=== PATIENT | female | born 1985 | race African-American/Black ===

== ENCOUNTER → 2017-10-20 | Outpatient (CLI) | payer BC ==
[~2017-10-20] MED LIST: ACET-1256 PO; CLR10 PO; LEVO1IUD2
--- NOTE | 2017-10-20 08:36 | DIAGNOSTIC IMAGING REPORT ---
ULTRASOUND OF THE PELVIS CLINICAL HISTORY: Endometriosis. COMPARISON STUDY: No priors. TECHNIQUE: Real-time, grayscale, and color flow sonography of the pelvis is performed both transabdominally and endovaginally. Images are reviewed in the transverse and longitudinal planes. FINDINGS: Uterus: The uterus is normal in size and echotexture, measuring 7.2 x 3.6 x 5.7 cm. Endometrium: The endometrium is normal in appearance, and the endometrial stripe is normal in thickness measuring up to 0.6 cm. An intrauterine device is in place. Ovaries: The ovaries are normal in size and morphology. The right ovary measures 3.2 x 2.5 x 4.0 cm and the left ovary measures 3.9 x 1.9 x 3.4 cm. A 2.4 cm complex/involuting follicle is noted in the left ovary. Normal Doppler waveforms are shown within both ovaries. Pelvis: There is a small volume of free fluid in the cul-de-sac. No concerning adnexal lesion is seen. IMPRESSION: 1. No acute sonographic abnormality is identified in the pelvis. 2. An intrauterine device is in place. 3. A small volume of free fluid in the cul-de-sac is likely within physiologic limits. 4. A complex/involuting follicle is noted in the left ovary. Electronically signed by: Noble Lynn M.D. 10/20/2017 8:35 AM Dictated Date/Time: 10/20/2017 8:33 AM
== END | disposition home or self-care (01) ==
LOC: C.ULTR 07:34
PROVIDERS: ATTEND Obstetrics & Gynecology Gynecologic Oncology
DX: Z85.42 Personal history of malignant neoplasm of other parts of uterus (principal); N85.02 Endometrial intraepithelial neoplasia [EIN]

== ENCOUNTER 2018-01-21 18:23 | Emergency (ER) | payer BC ==
[~2018-01-21] VITALS: Ht 170.2 cm; Wt 185.7 kg
[2018-01-21 18:30] VITALS: TEMP 36.8; Ht 170.2 cm; Wt 185.7 kg
[2018-01-21] MEDS ORDERED: KETOROLAC TROMETHAMINE 60 MG/2 ML VIAL IM STA (18:32)
[2018-01-21] MEDS ORDERED: ONDANSETRON 4MG OD TAB PO STA (18:32)
[2018-01-21] MEDS ORDERED: HYDROmorphone INJ 2 MG/ML SYR/VIAL IM STA (18:32)
--- NOTE | 2018-01-21 18:41 | EMERGENCY ROOM VISIT NOTE ---
History Report prepared by Sondra: Abhishek Rudolph Under the Supervision of: Dr. Librado Nagy M.D. First contact with patient: 18:29 Chief Complaint: FALL Stated Complaint: FALL, L ANKLE & SHOULDER PAIN History of Present Illness The patient is a 32 year old female who presents to the Emergency Room with complaints of constant left shoulder pain following a fall occurring today. The patient states that she slipped and fell in the mud today. She notes that she did not hit her head when she fell, but she reports that she injured her left shoulder and left ankle. She rates her pain as an 8/10. She denies any pain in her left elbow, wrist, and knee. The patient states that she did not take anything for her pain. Source of History: patient Onset: today Position: shoulder (left) Symptom Intensity: 8/10 Timing: constant Note: The patient also complains of left ankle pain. She denies any pain in her left elbow, wrist, and knee. Review of Systems See HPI for pertinent positives & negatives. A total of 10 systems reviewed and were otherwise negative. Past Medical & Surgical Medical Problems: (1) Sleep apnea Family History Cancer Diabetes mellitus Heart disease Hypertension Social History Smoking Status: Never Smoker Alcohol Use: none Drug Use: none Marital Status: single Occupation Status: employed Current/Historical Medications Scheduled PRN Acetaminophen (Tylenol), 1,000 MG PO Q8 PRN for Pain Ibuprofen (Advil), 200-600 MG PO Q4H PRN for Pain Loratadine (Claritin), 10 MG PO DAILY PRN for ALLERGIC REACTION Oxycodone/Acetaminophen 5MG/325MG (Percocet 5MG/325MG), 1-2 TAB PO Q4H PRN for Pain Miscellaneous Medications Levonorgestrel (Iud) (Mirena) Allergies Coded Allergies: BEE STING (Verified Allergy, Severe, SWELLING, 01/21/18) Dairy (Verified Allergy, Intermediate, GI UPSET, 01/21/18) Physical Exam Vital Signs Date Time Temp Pulse Resp B/P (MAP) Pulse Ox O2 Delivery O2 Flow Rate FiO2 01/21/18 20:21 67 18 174/95 100 01/21/18 18:30 36.8 55 18 156/97 95 Room Air Physical Exam GENERAL: Awake, alert, well-appearing, in no acute distress, morbidly obese. HENT: Normocephalic, atraumatic. Oropharynx unremarkable. EYES: Normal conjunctiva. Sclera non-icteric. NECK: Supple. No nuchal rigidity. FROM. No JVD. RESPIRATORY: Clear to auscultation. CARDIAC: Regular rate, normal rhythm. Extremities warm and well perfused. Pulses equal. ABDOMEN: Soft, non-distended. No tenderness to palpation. No rebound or guarding. No masses. RECTAL: Deferred. MUSCULOSKELETAL: Chest examination reveals no tenderness. The back is symmetrical on inspection without obvious abnormality. There is no CVA tenderness to palpation. No joint edema. Good ROM to left elbow and left wrist, neurovascularly intact. Good ROM in left hip. LOWER EXTREMITIES: Calves are equal size bilaterally and non-tender. No edema. No discoloration. Good ROM in left knee, neurovascularly intact in the left foot. NEURO: Normal sensorium. No sensory or motor deficits noted. SKIN: No rash or jaundice noted. Medical Decision & Procedures ER Provider Diagnostic Interpretation: Radiology results as stated below per my review and radiologist interpretation: LEFT SHOULDER 3 VIEWS FINDINGS: 3 views of the left shoulder are obtained. No prior studies are available for comparison at the time of dictation. The skeletal structures appear osteopenic. There is no radiographic evidence of left shoulder fracture or dislocation. The glenohumeral and acromioclavicular joints appear maintained. The overlying soft tissues are within normal limits. The imaged left upper lobe lung parenchyma appears clear. IMPRESSION: There is no radiographic evidence of left shoulder fracture or dislocation. Electronically signed by: Noble Lynn M.D. 01/21/2018 7:28 PM LEFT ANKLE 3 VIEWS FINDINGS: 3 views of the left ankle are obtained. No prior studies are available for comparison at the time of dictation. The skeletal structures appear osteopenic. No fracture is identified. The ankle mortise is intact. Degenerative spurring is seen along the dorsal last of the tarsal bones. Pes planus is observed. An os trigonum is incidentally noted. Mild benign-appearing periostitis is seen involving the distal tibia. There is no large ankle joint effusion. Soft tissue edema is present throughout the left lower extremity. Extensive soft tissue calcifications are noted. IMPRESSION: 1. Diffuse soft tissues swelling with no radiographic evidence of left ankle fracture. 2. Osteopenia, pes planus, and degenerative change as above. Electronically signed by: Noble Lynn M.D. 01/21/2018 7:27 PM Medications Administered Medications (Trade) Dose Ordered Sig/Miranda Route Start Time Stop Time Status Last Admin Dose Admin Hydromorphone HCl (Dilaudid Inj) 2 mg NOW STAT IM 01/21/18 18:32 01/21/18 18:34 DC 01/21/18 18:55 2 MG Ondansetron HCl (Zofran Odt) 4 mg NOW STAT PO 01/21/18 18:32 01/21/18 18:34 DC 01/21/18 18:55 4 MG Ketorolac Tromethamine (Toradol Inj) 60 mg NOW STAT IM 01/21/18 18:32 01/21/18 18:34 DC 01/21/18 18:55 60 MG Oxycodone/ Acetaminophen (Percocet 5/ 325MG Home Pack) 1 homepack UD ONCE PO 01/21/18 19:45 01/21/18 19:46 DC 01/21/18 20:14 1 HOMEPACK ED Course 1829: Past medical records reviewed. The patient was evaluated in room B12. A complete history and physical examination was performed. 1831: Toradol Inj 60mg IM, Zofran Odt 4mg PO, Dilaudid Inj 2mg IM 1920: I reevaluated and updated the patient. 1944: Oxycodone/Acetaminophen 1 homepack PO 1947: Upon reexamination the patient is stable. I discussed results and treatment plan with the patient. She verbalizes agreement and understanding. The patient is ready for discharge. Medical Decision Differential diagnosis: Etiologies such as fracture, dislocation, intra-abdominal, pneumothorax, intrathoracic , intracranial, neurologic, as well as other traumatic pathologies were entertained. This is a 32-year-old female who presents emergency department after a fall. The patient has good range of motion of the left shoulder and has no evidence of contusion. The patient was given Dilaudid Toradol and Zofran here in the emergency department. Repeat examination revealed much improvement the patient' s symptoms. X-ray of the patient's left shoulder and left ankle does not show any acute fracture dislocation or subluxation. The patient will be placed on crutches here in the emergency department and I encouraged her to follow up with orthopedic surgery. She was also given a prescription for Percocet for home. Patient was in agreement with the treatment plan. Medication Reconcilliation Current Medication List: was personally reviewed by me Blood Pressure Screening Patient's blood pressure: Elevated blood pressure Blood pressure disposition: Elevated BP felt to be situational Impression Primary Impression: Ankle pain, left Additional Impressions: Shoulder pain, left Fall Scribe Attestation The scribe's documentation has been prepared under my direction and personally reviewed by me in its entirety. I confirm that the note above accurately reflects all work, treatment, procedures, and medical decision making performed by me. Departure Information Dispostion Home / Self-Care Prescriptions Oxycodone/Acetaminophen 5MG/325MG (PERCOCET 5MG/325MG) Tab 1-2 TAB PO Q4H Y for Pain, #14 TAB Prov: Librado Nagy MD 01/21/18 Referrals Morgan Cheung M.D. (PCP) Forms HOME CARE DOCUMENTATION FORM, IMPORTANT VISIT INFORMATION Patient Instructions My [facility] Additional Instructions Jody johnson with Dr Carbajal's office You received narcotic or benzodiazepene medication while in the emergency room today. This is an addictive medication that may cause drowziness as well as constipation. Do not drive, operate heavy machinery, or drink alcohol under the influence of this medication. Take 600 mg Ibuprofen every 6 hours Take Percocet for breakthrough pain You have been examined and treated today on an emergency basis only. This is not a substitute for, or an effort to provide, complete comprehensive medical care. It is impossible to recognize and treat all injuries or illnesses in a single emergency department visit. It is therefore important that you follow up closely with Dr Lopez. Call as soon as possible for an appointment. Thank you for your time and consideration. I look forward to speaking with you again soon. Please don't hesitate to call us if you have any questions. Problem Qualifiers Primary Impression: Ankle pain, left Chronicity: acute Qualified Codes: M25.572 - Pain in left ankle and joints of left foot Additional Impressions: Shoulder pain, left Chronicity: acute Qualified Codes: M25.512 - Pain in left shoulder Fall Encounter type: initial encounter Qualified Codes: W19.XXXA - Unspecified fall, initial encounter
--- NOTE | 2018-01-21 19:28 | DIAGNOSTIC IMAGING REPORT ---
LEFT ANKLE 3 VIEWS CLINICAL HISTORY: Fall with left ankle injury. FINDINGS: 3 views of the left ankle are obtained. No prior studies are available for comparison at the time of dictation. The skeletal structures appear osteopenic. No fracture is identified. The ankle mortise is intact. Degenerative spurring is seen along the dorsal last of the tarsal bones. Pes planus is observed. An os trigonum is incidentally noted. Mild benign-appearing periostitis is seen involving the distal tibia. There is no large ankle joint effusion. Soft tissue edema is present throughout the left lower extremity. Extensive soft tissue calcifications are noted. IMPRESSION: 1. Diffuse soft tissues swelling with no radiographic evidence of left ankle fracture. 2. Osteopenia, pes planus, and degenerative change as above. Electronically signed by: Noble Lynn M.D. 01/21/2018 7:27 PM Dictated Date/Time: 01/21/2018 7:25 PM
--- NOTE | 2018-01-21 19:29 | DIAGNOSTIC IMAGING REPORT ---
LEFT SHOULDER 3 VIEWS CLINICAL HISTORY: Fall with left shoulder pain. FINDINGS: 3 views of the left shoulder are obtained. No prior studies are available for comparison at the time of dictation. The skeletal structures appear osteopenic. There is no radiographic evidence of left shoulder fracture or dislocation. The glenohumeral and acromioclavicular joints appear maintained. The overlying soft tissues are within normal limits. The imaged left upper lobe lung parenchyma appears clear. IMPRESSION: There is no radiographic evidence of left shoulder fracture or dislocation. Electronically signed by: Noble Lynn M.D. 01/21/2018 7:28 PM Dictated Date/Time: 01/21/2018 7:27 PM
[2018-01-21] MEDS ORDERED: OXYC-57 PO (19:42)
[2018-01-21] MEDS ORDERED: PERCOCET HOME PACK PO ONE (19:45)
[2018-01-21] MEDS ORDERED: IBUP-1050 PO (19:53)
[2018-01-21 20:21] VITALS: BP 174/95; PULSE 67; O2SAT 100
== END 2018-01-21 20:21 | disposition home or self-care (01) ==
LOC: EDBD 18:23 → C.EDB 18:25
DX: M25.512 Pain in left shoulder (principal); M25.572 Pain in left ankle and joints of left foot; W01.0XXA Fall on same level from slipping, tripping and stumbling without subsequent striking against object, initial encounter; G47.30 Sleep apnea, unspecified; Z80.9 Family history of malignant neoplasm, unspecified; Z83.3 Family history of diabetes mellitus; Z82.49 Family history of ischemic heart disease and other diseases of the circulatory system; Z79.899 Other long term (current) drug therapy; Z97.5 Presence of (intrauterine) contraceptive device; Z91.030 Bee allergy status; Z91.011 Allergy to milk products; E66.01 Morbid (severe) obesity due to excess calories

== ENCOUNTER → 2018-01-23 | Outpatient (CLI) | payer BC ==
[~2018-01-23] MED LIST changes: +IBUP-1050 PO; +OXYC-57 PO
--- NOTE | 2018-01-23 13:41 | DIAGNOSTIC IMAGING REPORT ---
ULTRASOUND L VENOUS DOPP LOWER EXT UNILAT CLINICAL HISTORY: Left leg pain COMPARISON STUDY: No previous studies for comparison. FINDINGS: Real-time and color flow Doppler imaging were performed. Flow was seen within the femoral, popliteal and calf veins with no intraluminal thrombus demonstrated. The saphenous vein is patent. IMPRESSION: No evidence of left lower extremity DVT. Electronically signed by: Justen Silveira M.D. 01/23/2018 1:40 PM Dictated Date/Time: 01/23/2018 1:39 PM
== END | disposition home or self-care (01) ==
LOC: C.ULTRBC 13:07
PROVIDERS: ATTEND Family Medicine
DX: M79.605 Pain in left leg (principal)

== ENCOUNTER 2022-11-11 07:32 | Observation (INO) ==
[2022-11-11] MEDS ORDERED: FAMOTIDINE 20 MG in SYRINGE 3 ML IV STA (08:00)
[2022-11-11] MEDS ORDERED: KETOROLAC TROMETHAMINE 15 MG/ML VIAL IV STA (08:00)
[2022-11-11] MEDS ORDERED: SODIUM CHLORIDE 0.9% 1000ML 1,000 ML IV STA (08:00)
[2022-11-11] MEDS ORDERED: ONDANSETRON INJ 2 MG/ML 2 ML VIAL IV STA (08:00)
--- NOTE | 2022-11-11 08:10 | Emergency Department Note ---
History of Present Illness General Chief complaint: Abdominal Pain Stated complaint: ABD PAIN Time Seen by Provider: 11/11/22 07:48 History of Present Illness Maximum Pain Intensity: 8 37 year old female who presents to ED today with c/o epigastric abdominal pain. Patient states she was awakened around 2a this morning with severe burning abdominal pain that radiates to her mid back. She notes being in her usual state of health yesterday. She states the pain exacerbated with movement and deep inhalation. Reports pain is a 5-7/10. She notes a history of reflux and takes Nexum at home which she did take this morning without relief. She also tried GasX and Pepto Bismol without relief. She reports associated nausea, no vomiting. She denies fever, chills, chest pain, SOB, recent-cold like symptoms, diarrhea/constipation, hematochezia, urinary symptoms. Denies this ever happening to her before. Denies history of gallbladder disease, pancreatitis, kidney stones. She notes occasional alcohol use, denies tobacco use. No significant past medical history or allergies to medications. Home Medications Medication Instructions Recorded Confirmed Type epinephrine 0.3 mg/0.3 mL 0.3 mg IM Q10M PRN Allergic 09/02/19 10/17/22 History injection, auto-injector (EpiPen) Reaction levonorgestrel 21 mcg/24 hours (8 20 mcg intrauterine CONTINOUS 09/02/19 10/17/22 History yrs) 52 mg intrauterine device (Mirena) cholecalciferol (vitamin D3) 25 75 mcg PO DAILY 11/27/21 10/17/22 History mcg (1,000 unit) capsule multivitamin 1 tab PO DAILY 11/27/21 10/17/22 History esomeprazole magnesium 40 mg 40 mg PO DAILY 01/01/22 10/17/22 History capsule,delayed release (Nexium) chlorthalidone 25 mg tablet 25 mg PO DAILY 07/02/22 10/17/22 History phentermine 15 mg capsule 15 mg PO DAILY #30 caps 09/17/22 10/17/22 Rx Allergies Allergy/AdvReac Type Severity Reaction Status Date / Time bee venom protein (honey bee) Allergy Severe SWELLING Verified 10/17/22 13:41 milk Allergy Intermediate GI UPSET Verified 10/17/22 13:41 Past Med/Surg History Medical History Cardiomyopathy GERD (gastroesophageal reflux disease) Iron deficiency YOLETTE (obstructive sleep apnea) Surgical History History of adenectomy History of dilation and curettage (~2016) x2 History of oral surgery Family History Family/Other Anemia Cardiac disorder Depression Diabetes Social History Smoking Status: Never smoker Hx Alcohol Use: Yes (social) Hx Substance Use: No Preferred Language: Thai marital status: Single Current Living Situation: Other Current Living Situation Comment: roommate current occupational status: employed 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 Feels Safe at Home: Yes Physical Exam Vital Signs Vital Signs - 24 hr 11/11/22 07:34 11/11/22 08:22 11/11/22 08:22 Temperature 36.1 C L Temperature Source Temporal Artery Scan Pulse Rate 72 67 Pulse Rate [Apical] 67 Pulse Rate from SpO2 Sensor Pulse Rhythm Regular Pulse Rhythm [Apical] Pulse Strength [Apical] Respiratory Rate 20 18 18 Respiratory Effort / Characteristics Non-Labored Spontaneous Respiratory Depth Normal Normal Respiratory Pattern Blood Pressure 137/77 Blood Pressure [Right Arm] 135/88 Blood Pressure Mean 97 Blood Pressure Mean [Right Arm] 103 Blood Pressure Position [Right Arm] Pulse Oximetry 98 95 95 Oxygen Delivery Method Room Air Room Air Room Air Sepsis New/Unexplained Change in Mental Status N/A Sepsis Action Taken by Nursing No Action Required 11/11/22 08:19 11/11/22 09:34 11/11/22 10:31 Temperature Temperature Source Pulse Rate 70 74 Pulse Rate [Apical] 67 Pulse Rate from SpO2 Sensor 95 H Pulse Rhythm Pulse Rhythm [Apical] Regular Pulse Strength [Apical] Normal Respiratory Rate 18 20 Respiratory Effort / Characteristics Non-Labored Spontaneous Respiratory Depth Normal Respiratory Pattern Regular Blood Pressure 114/74 Blood Pressure [Right Arm] 107/74 Blood Pressure Mean 87 Blood Pressure Mean [Right Arm] 85 Blood Pressure Position [Right Arm] Sitting Pulse Oximetry 95 94 Oxygen Delivery Method Room Air Room Air Sepsis New/Unexplained Change in Mental Status Sepsis Action Taken by Nursing Constitutional: alert and oriented x3. no acute distress. Respiratory: lungs are clear to auscultation without wheezes, rhonchi, or rales bilaterally. equal chest rise. normal respiratory effort, no accessory muscle use. Cardiovascular: normal heart sounds without murmur. regular rate and rhythm. GI: abdomen is obsese, soft,nondistended. RUQ tenderness, positive Manley's. nl bowel sounds present throughout. No palpable masses. No rebound tenderness or guarding. No CVA tenderness Psych:appropriate mood and affect. Course Administered Medications Discontinued Medications Sodium Chloride (Nss 1000ml) 1,000 mls @ 999 mls/hr IV .Q1H1M STA Stop: 11/11/22 09:00 Last Infusion: 11/11/22 11:49 Dose: 0 mls/hr Documented By: Admin: 11/11/22 08:17 Dose: 999 mls/hr Documented By: LAURA Famotidine 20 mg/ Syringe 5 mls @ 2.5 mls/min IV NOW STA Stop: 11/11/22 08:01 Last Admin: 11/11/22 09:32 Dose: 2.5 mls/min Documented By: LAURA Lactated Ringer's (Lr) 1,000 mls @ 999 mls/hr IV .Q1H1M ONE Stop: 11/11/22 11:26 Last Admin: 11/11/22 10:51 Dose: 999 mls/hr Documented By: DA Potassium Chloride (K Philipp / Wtr) 10 meq in 100 mls @ 100 mls/hr IV Q1H TC; Protocol Stop: 11/11/22 12:29 Last Infusion: 11/11/22 11:49 Dose: 0 mls/hr Documented By: Admin: 11/11/22 10:52 Dose: 100 mls/hr Documented By: DA Ioversol (Optiray 320 500ml) 118 ml IV ONCE ONE Stop: 11/11/22 09:10 Last Admin: 11/11/22 09:01 Dose: 118 ml Documented By: NGUYEN Ketorolac Tromethamine (Ketorolac Tromethamine 15 Mg/Ml Vial) 15 mg IV NOW STA Stop: 11/11/22 08:01 Last Admin: 11/11/22 08:17 Dose: 15 mg Documented By: LAURA Ondansetron HCl (Ondansetron Inj 2 Mg/Ml 2 Ml Vial) 4 mg IV NOW STA Stop: 11/11/22 08:01 Last Admin: 11/11/22 08:17 Dose: 4 mg Documented By: NRB Potassium Chloride (Potassium Chloride 10 Meq / 100ml Wtr) Confirm Administered Dose 10 meq IV .STK-MED ONE Stop: 11/11/22 10:44 Last Admin: 11/11/22 10:52 Dose: Not Given Documented By: MNE Medical Decision Making Differential Diagnosis gallbladder disease, pancreatitis, hepatitis, SBO, renal colic, nephrolithiasis, appendicitis, diverticulitis, UTI, mesenteric ischemia, aortic pathology, inflammatory bowel disease, PUD, as well as other pathologies. Laboratory Data Attestation: I reviewed the patient's lab results. 11/11/22 07:54 11/11/22 07:54 Lab Results 11/11/22 11/11/22 11/11/22 Range/Units 07:54 07:54 07:54 WBC 6.41 (4.8-10.8) K/ul RBC 4.68 (4.20-5.40) M/uL Hgb 11.3 L (12.0-16.0) g/dl Hct 36.9 L (37.0-47.0) % MCV 78.8 L (80.0-100.0) fL MCH 24.1 L (25.0-34.0) pg MCHC 30.6 L (32.0-36.0) g/dL RDW Std Deviation 52.4 H (36.4-46.3) fL RDW Coeff of Hari 18.5 H (11.5-14.5) % Plt Count 235 (130-400) K/uL MPV 10.0 (9.4-12.4) fL Immature Gran % (Auto) 0.3 % Neut % (Auto) 65.3 % Lymph % (Auto) 25.7 % [place] % (Auto) 7.3 % Eos % (Auto) 1.1 % Baso % (Auto) 0.3 % Neut # (Auto) 4.18 (1.40-6.50) K/uL Lymph # (Auto) 1.65 (1.2-3.4) K/uL [place] # (Auto) 0.47 (0.11-0.59) K/uL Eos # (Auto) 0.07 (0-0.50) K/uL Baso # (Auto) 0.02 (0-0.2) K/uL Immature Gran # (Auto) 0.02 (0.01-0.20) K/uL Sodium 138 (136-145) mmol/L Potassium 3.2 L (3.5-5.1) mmol/L Chloride 101 (98-107) mmol/L Carbon Dioxide 31 (21-32) mmol/L Anion Gap 6 (3-11) BUN 12 (6-23) mg/dl Creatinine 0.61 (0.6-1.2) mg/dl Est Cr Clr Drug Dosing 211.3 ml/min Est GFR ( Amer) 134.2 ml/min Est GFR (Non-Af Amer) 115.8 ml/min BUN/Creatinine Ratio 19.7 (10-20) Glucose 115 H (70-99(Fasting)) mg/dl Calcium 9.0 (8.5-10.1) mg/dl Magnesium 1.9 (1.7-2.4) mg/dl Iron 51 (35-150) mcg/dl TIBC 255 (250-450) mcg/dl Unsaturated IBC 204 (155-355) mcg/dl Transferrin % Sat 20 (15-50) % Ferritin 260.5 (8-388) ng/ml Total Bilirubin 1.7 H (0.2-1.0) mg/dl AST 104 H (13-39) U/L ALT 63 H (7-52) U/L Alkaline Phosphatase 98 (34-104) U/L Total Creatine Kinase 179 (26-192) U/L Troponin I High Sens 9.6 (0-14) pg/ml Total Protein 7.9 (6.0-8.3) gm/dl Albumin 3.8 (3.4-5.0) gm/dl Globulin 4.1 H (2.5-4.0) gm/dl Albumin/Globulin Ratio 0.9 (0.9-2) Triglycerides 78 (0-150) mg/dl Cholesterol 145 (0-200) mg/dl LDL Cholesterol, Calc 68 mg/dl VLDL Cholesterol, Calc 16 (0-30) mg/dl HDL Cholesterol 61 mg/dl Cholesterol/HDL Ratio 2.4 (0-5) Lipase 3619 H (11-82) U/L TSH (0.300-4.500) uIu/ml Urine Color Dark Yellow Urine Appearance Cloudy A (Clear) Urine pH 6.0 (4.5-7.5) Ur Specific [place] 1.019 (1.000-1.030) Urine Protein Negative (Negative) Urine Glucose (UA) Negative (Negative) Urine Ketones Negative (Negative) Urine Blood Negative (Negative) Urine Nitrite Negative (Negative) Urine Bilirubin 1+ H (Negative) Urine Urobilinogen Positive H (Negative) Ur Leukocyte Esterase 1+ H (Negative) Urine WBC (Auto) 1-5 (0-5) /hpf Urine RBC (Auto) 5-10 H (0-4) /hpf U Hyaline Cast (Auto) 0 (0-5) /lpf U Epithel Cells (Auto) >30 H (0-5) /lpf Urine Bacteria (Auto) 1+ H (Negative) Urine Test (Negative) SARS-CoV-2, RNA, NAAT (NEGATIVE) 11/11/22 11/11/22 11/11/22 Range/Units 07:54 07:54 10:30 WBC (4.8-10.8) K/ul RBC (4.20-5.40) M/uL Hgb (12.0-16.0) g/dl Hct (37.0-47.0) % MCV (80.0-100.0) fL MCH (25.0-34.0) pg MCHC (32.0-36.0) g/dL RDW Std Deviation (36.4-46.3) fL RDW Coeff of Hari (11.5-14.5) % Plt Count (130-400) K/uL MPV (9.4-12.4) fL Immature Gran % (Auto) % Neut % (Auto) % Lymph % (Auto) % [place] % (Auto) % Eos % (Auto) % Baso % (Auto) % Neut # (Auto) (1.40-6.50) K/uL Lymph # (Auto) (1.2-3.4) K/uL [place] # (Auto) (0.11-0.59) K/uL Eos # (Auto) (0-0.50) K/uL Baso # (Auto) (0-0.2) K/uL Immature Gran # (Auto) (0.01-0.20) K/uL Sodium (136-145) mmol/L Potassium (3.5-5.1) mmol/L Chloride (98-107) mmol/L Carbon Dioxide (21-32) mmol/L Anion Gap (3-11) BUN (6-23) mg/dl Creatinine (0.6-1.2) mg/dl Est Cr Clr Drug Dosing ml/min Est GFR ( Amer) ml/min Est GFR (Non-Af Amer) ml/min BUN/Creatinine Ratio (10-20) Glucose (70-99(Fasting)) mg/dl Calcium (8.5-10.1) mg/dl Magnesium Cancelled (1.7-2.4) mg/dl Iron Cancelled (35-150) mcg/dl TIBC Cancelled (250-450) mcg/dl Unsaturated IBC Cancelled (155-355) mcg/dl Transferrin % Sat Cancelled (15-50) % Ferritin Cancelled (8-388) ng/ml Total Bilirubin (0.2-1.0) mg/dl AST (13-39) U/L ALT (7-52) U/L Alkaline Phosphatase (34-104) U/L Total Creatine Kinase Cancelled (26-192) U/L Troponin I High Sens (0-14) pg/ml Total Protein (6.0-8.3) gm/dl Albumin (3.4-5.0) gm/dl Globulin (2.5-4.0) gm/dl Albumin/Globulin Ratio (0.9-2) Triglycerides Cancelled (0-150) mg/dl Cholesterol Cancelled (0-200) mg/dl LDL Cholesterol, Calc Cancelled mg/dl VLDL Cholesterol, Calc Cancelled (0-30) mg/dl HDL Cholesterol Cancelled mg/dl Cholesterol/HDL Ratio Cancelled (0-5) Lipase (11-82) U/L TSH 2.093 (0.300-4.500) uIu/ml Urine Color Urine Appearance (Clear) Urine pH (4.5-7.5) Ur Specific [place] (1.000-1.030) Urine Protein (Negative) Urine Glucose (UA) (Negative) Urine Ketones (Negative) Urine Blood (Negative) Urine Nitrite (Negative) Urine Bilirubin (Negative) Urine Urobilinogen (Negative) Ur Leukocyte Esterase (Negative) Urine WBC (Auto) (0-5) /hpf Urine RBC (Auto) (0-4) /hpf U Hyaline Cast (Auto) (0-5) /lpf U Epithel Cells (Auto) (0-5) /lpf Urine Bacteria (Auto) (Negative) Urine Test Negative (Negative) SARS-CoV-2, RNA, NAAT (NEGATIVE) 11/11/22 Range/Units 11:38 WBC (4.8-10.8) K/ul RBC (4.20-5.40) M/uL Hgb (12.0-16.0) g/dl Hct (37.0-47.0) % MCV (80.0-100.0) fL MCH (25.0-34.0) pg MCHC (32.0-36.0) g/dL RDW Std Deviation (36.4-46.3) fL RDW Coeff of Hari (11.5-14.5) % Plt Count (130-400) K/uL MPV (9.4-12.4) fL Immature Gran % (Auto) % Neut % (Auto) % Lymph % (Auto) % [place] % (Auto) % Eos % (Auto) % Baso % (Auto) % Neut # (Auto) (1.40-6.50) K/uL Lymph # (Auto) (1.2-3.4) K/uL [place] # (Auto) (0.11-0.59) K/uL Eos # (Auto) (0-0.50) K/uL Baso # (Auto) (0-0.2) K/uL Immature Gran # (Auto) (0.01-0.20) K/uL Sodium (136-145) mmol/L Potassium (3.5-5.1) mmol/L Chloride (98-107) mmol/L Carbon Dioxide (21-32) mmol/L Anion Gap (3-11) BUN (6-23) mg/dl Creatinine (0.6-1.2) mg/dl Est Cr Clr Drug Dosing ml/min Est GFR ( Amer) ml/min Est GFR (Non-Af Amer) ml/min BUN/Creatinine Ratio (10-20) Glucose (70-99(Fasting)) mg/dl Calcium (8.5-10.1) mg/dl Magnesium (1.7-2.4) mg/dl Iron (35-150) mcg/dl TIBC (250-450) mcg/dl Unsaturated IBC (155-355) mcg/dl Transferrin % Sat (15-50) % Ferritin (8-388) ng/ml Total Bilirubin (0.2-1.0) mg/dl AST (13-39) U/L ALT (7-52) U/L Alkaline Phosphatase (34-104) U/L Total Creatine Kinase (26-192) U/L Troponin I High Sens (0-14) pg/ml Total Protein (6.0-8.3) gm/dl Albumin (3.4-5.0) gm/dl Globulin (2.5-4.0) gm/dl Albumin/Globulin Ratio (0.9-2) Triglycerides (0-150) mg/dl Cholesterol (0-200) mg/dl LDL Cholesterol, Calc mg/dl VLDL Cholesterol, Calc (0-30) mg/dl HDL Cholesterol mg/dl Cholesterol/HDL Ratio (0-5) Lipase (11-82) U/L TSH (0.300-4.500) uIu/ml Urine Color Urine Appearance (Clear) Urine pH (4.5-7.5) Ur Specific [place] (1.000-1.030) Urine Protein (Negative) Urine Glucose (UA) (Negative) Urine Ketones (Negative) Urine Blood (Negative) Urine Nitrite (Negative) Urine Bilirubin (Negative) Urine Urobilinogen (Negative) Ur Leukocyte Esterase (Negative) Urine WBC (Auto) (0-5) /hpf Urine RBC (Auto) (0-4) /hpf U Hyaline Cast (Auto) (0-5) /lpf U Epithel Cells (Auto) (0-5) /lpf Urine Bacteria (Auto) (Negative) Urine Test (Negative) SARS-CoV-2, RNA, NAAT NEGATIVE (NEGATIVE) Imaging Data Radiologist's Impression: Abdomen/Pelvis CT 11/11/22 08:00 CT OF THE ABDOMEN AND PELVIS WITH CONTRAST CLINICAL HISTORY: Epigastric abdominal pain. COMPARISON STUDY: CTA of the abdomen and pelvis April 01, 2022. TECHNIQUE: Following IV administration of 118 mL of Optiray, axial images of the abdomen and pelvis were obtained from the lung bases to the proximal femurs. Images were reviewed in the axial, sagittal, and coronal planes. IV contrast was administered without complication. Automated exposure control was utilized for the study. A dose lowering technique was utilized adhering to the principles of ALARA. CT DOSE: 1950.98 mGy.cm FINDINGS: Lung bases are unremarkable. No pneumatosis, free air or portal venous gas is present. There is hepatic steatosis. The spleen, adrenal glands, kidneys and pancreas are normal. No biliary or pancreatic ductal dilatation. No hydronephrosis. No peripancreatic or pericholecystic infiltration is present. The appendix is normal. There is apparent wall thickening with shouldering within the cecum shown best on axial image 255 of 436. This is probably artifactual. Intrauterine device is in place. There is no ascites. There is no lymphadenopathy. No fluid collection is present. Small fat-containing umbilical hernia is present. There are no acute fractures. No suspicious osseous lesions are present. Infrarenal abdominal aorta is ectatic, measuring 2.7 cm. This is unchanged. IMPRESSION: 1. No bowel obstruction. Normal appendix. 2. Apparent wall thickening with shouldering within the cecum. This is likely artifactual. Although less likely, a mucosal lesion cannot be excluded. GI consultation for consideration for colonoscopy is recommended. 3. Hepatic steatosis. ACT 112: Positive. There are findings on this exam that require communication between the performing entity and the patient following Patient Test Result Information Act ([place] Act 112) guidelines. Electronically signed by: Paulo Long M.D. 11/11/2022 9:51 AM Chest X-Ray 11/11/22 10:55 SINGLE VIEW CHEST CLINICAL HISTORY: Atypical chest pain FINDINGS: An AP, portable, upright chest radiograph is compared to chest x-ray and chest CT dated 04/01/2022. The heart is enlarged. There is pulmonary vascular congestion. Bilateral airspace opacities likely represent interstitial edema. No large pleural effusion or pneumothorax is seen. The skeletal structures are osteopenic. The bony thorax is grossly intact. IMPRESSION: 1. Cardiomegaly with evidence of congestive failure. 2. Bilateral airspace opacities likely represent pulmonary edema. Correlate clinically for evidence of a superimposed infectious/inflammatory pneumonitis. Radiographic follow-up to resolution is recommended. ACT 112: Negative or not required by law. Electronically signed by: Noble Lynn M.D. 11/11/2022 11:07 AM MDM Narrative 37 year old female who presents to ED today with c/o acute onset epigastric abdominal pain. Review of pertinent visits and patient history performed. Vital signs in ED within normal limits, afebrile. Given clinical presentation, IV access was established and labs obtained. CBC consistent with microcytic anemia, hgb 11. White count normal. CMP without evidence of electrolyte abnormalities. Elevated LFTs, AST 104, ALT 63. Total bilirubin mildly elevated at 1.7. Lipase significantly elevated at 3619. EKG demonstrates NSR at a rate of 63 bpm without evidence of ischemic changes. Urinalysis +1 bilirubin, +1 leukocyte esterase, > [address] abd/pelvis with contrast was obtained. This was personally reviewed as well as interpreted by radiology and was relatively unremarkable. Gallbladder and pancreas within normal limits without evidence of inflammation or obvious stone. Fatty liver noted. Clinically, patient is nontoxic appearing in no acute distress. She was given IV Toradol, Zofran, Pepcid as well as 1L IV fluids with mild improvement in symptoms. Patient was re-evaluated on multiple occasions with no new concerns. She did require additional pain control with IV morphine follow CT. She was updated on all exam findings and test results. Findings are consistent with acute pancreatitis with elevated liver enzymes and lipase. She again denies significant alcohol use or Tylenol overuse. CT was relatively unremarkable. Given these findings, I recommend admission to hospital for further work up, possibly MRCP, and pain control. She may have a stone that is not visualized on CT. Patient agreeable to this plan. Case was discussed with hospitalist, Dr. Aguilar, who reviewed ED work up and graciously accepted patient to their service for further evaluation and management. Patient was admitted inpatient in stable condition. Patient discussed with attending, Dr. Schafer, who agrees with work up and treatment plan. Impression & Plan Acute pancreatitis, Elevated LFTs, Epigastric abdominal pain Discharge Plan Visit Data Chief Complaint: Abdominal Pain Stated Complaint: ABD PAIN ED Provider: Librado Schafer ED Midlevel Provider: Kae Roberts Discharge Problem: Acute pancreatitis, Elevated LFTs, Epigastric abdominal pain Patient Disposition: Admitted As Inpatient Condition: Good Forms Stand Alone Forms: [facility] Prescriptions Prescriptions: No Action phentermine 15 mg capsule 15 mg PO DAILY Qty: 30 0RF multivitamin Tablet 1 tab PO DAILY cholecalciferol (vitamin D3) 25 mcg (1,000 unit) capsule 75 mcg PO DAILY chlorthalidone 25 mg tablet 25 mg PO DAILY epinephrine [EpiPen] 0.3 mg/0.3 mL auto-injector 0.3 mg IM Q10M PRN (Reason: Allergic Reaction) Mirena 20 mcg/24 hours (5 yrs) 52 mg intrauterine device 20 mcg intrauterine CONTINOUS esomeprazole magnesium [Nexium] 40 mg capsule,delayed release(DR/EC) 40 mg PO DAILY Referrals Referrals: Paul Nazario [Primary Care Provider] -
[2022-11-11 08:16] LABS: Basophils # (auto) 0.02 K/uL (0-0.2); Basophils % (auto) 0.3 %; Eosinophils # (auto) 0.07 K/uL (0-0.50); Eosinophils % (auto) 1.1 %; Hematocrit (blood only) 36.9 % (37.0-47.0); Hemoglobin 11.3 g/dl (12.0-16.0); Immature Granulocytes # (auto) 0.02 K/uL (0.01-0.20); Immature Granulocytes % (auto) 0.3 %; Lymphocytes # (auto) 1.65 K/uL (1.2-3.4); Lymphocytes % (auto) 25.7 %; Mean Corpuscular Hemoglobin 24.1 pg (25.0-34.0); Mean Corpuscular Hgb Conc 30.6 g/dL (32.0-36.0); Mean Corpuscular Volume 78.8 fL (80.0-100.0); Monocytes # (auto) 0.47 K/uL (0.11-0.59); Monocytes % (auto) 7.3 %; Neutrophils # (auto) 4.18 K/uL (1.40-6.50); Neutrophils % (auto) 65.3 %; Platelet Count 235 K/uL (130-400); RDW Coefficient of Variation 18.5 % (11.5-14.5); RDW Standard Deviation 52.4 fL (36.4-46.3); Red Blood Count 4.68 M/uL (4.20-5.40); White Blood Count 6.41 K/ul (4.8-10.8)
[2022-11-11 08:26] LABS: Appearance Urine Cloudy (Clear); Bacteria Urine Automated 1+ (Negative); Blood Urine Negative (Negative); Cast Urine Automated 0 /lpf (0-5); Color Urine Dark Yellow; Epithelial Cell Urine Auto >30 /lpf (0-5); Glucose Urine UA Negative (Negative); Ketones Urine Negative (Negative); Leukocyte Esterase Urine 1+ (Negative); Nitrite Urine Negative (Negative); Pregnancy Test, Urine Negative (Negative); Protein Urine Negative (Negative); Specific Gravity Urine 1.019 (1.000-1.030); Urobilinogen Urine Positive (Negative)
[2022-11-11 08:31] LABS: BUN Creatinine Ratio 19.7 (10-20); Bilirubin Urine 1+ (Negative); Creatinine Clr Calc Pharmacy 211.3 ml/min; Est GFR (African American) 134.2 ml/min; Est GFR (Non-African American) 115.8 ml/min; Potassium 3.2 mmol/L (3.5-5.1)
[2022-11-11 08:37] LABS: Troponin I High Sensitivity 9.6 pg/ml (0-14)
[2022-11-11 08:40] LABS: Albumin Globulin Ratio 0.9 (0.9-2); Albumin Level 3.8 gm/dl (3.4-5.0); Bilirubin,Total 1.7 mg/dl (0.2-1.0); Globulin 4.1 gm/dl (2.5-4.0); Total Protein 7.9 gm/dl (6.0-8.3)
[2022-11-11] MEDS ORDERED: OPTIRAY 320 500ml IV ONE (09:09)
--- NOTE | 2022-11-11 09:53 | CT Scan Report ---
CT OF THE ABDOMEN AND PELVIS WITH CONTRAST CLINICAL HISTORY: Epigastric abdominal pain. COMPARISON STUDY: CTA of the abdomen and pelvis April 01, 2022. TECHNIQUE: Following IV administration of 118 mL of Optiray, axial images of the abdomen and pelvis w ere obtained from the lung bases to the proximal femurs. Images were reviewed in the axial, sagittal, and coronal planes. IV contrast was administered without complication. Automated exposure control w as utilized for the study. A dose lowering technique was utilized adhering to the principles of DANII Romero. CT DOSE: 1950.98 mGy.cm FINDINGS: Lung bases are unremarkable. No pneumatosis, free air or portal venous gas is present. Ther e is hepatic steatosis. The spleen, adrenal glands, kidneys and pancreas are normal. No biliary or pa ncreatic ductal dilatation. No hydronephrosis. No peripancreatic or pericholecystic infiltration is p resent. The appendix is normal. There is apparent wall thickening with shouldering within the cecum s hown best on axial image 255 of 436. This is probably artifactual. Intrauterine device is in place. T here is no ascites. There is no lymphadenopathy. No fluid collection is present. Small fat-containing umbilical hernia is present. There are no acute fractures. No suspicious osseous lesions are present . Infrarenal abdominal aorta is ectatic, measuring 2.7 cm. This is unchanged. IMPRESSION: 1. No bowel obstruction. Normal appendix. 2. Apparent wall thickening with shouldering within the cecum. This is likely artifactual. Although l ess likely, a mucosal lesion cannot be excluded. GI consultation for consideration for colonoscopy is recommended. 3. Hepatic steatosis. ACT 112: Positive. There are findings on this exam that require communication between the performing entity and the patient following Patient Test Result Information Act ([place] Act 112) guidelines. Electronically signed by: Paulo Long M.D. 11/11/2022 9:51 AM
[2022-11-11] MEDS ORDERED: MoRPHine SULFATE 4 MG/ML 1 ML CARP\\VIAL IV STA (10:09)
[2022-11-11] MEDS ORDERED: LACTATED RINGER'S 1,000 ML IV ONE (10:26)
--- NOTE | 2022-11-11 10:36 | History & Physical Report ---
Date of Service November 11, 2022 Assessment & Plan (1) Abdominal pain: Plan: presented with epigastric pain/radiation to mid-back. Is on chlorthalidone. Denies hx sickle cell/fam hx of such Lipase 3618 on admission concerning for pancreatitis. ?gallstone pancreatitis, ? passed stone -- not having any further pain at time of eval Patient w/o issues with bowels/blood in stool reported. Does have hx iron def anemia but forgets to take replacement CTA/P without significant abn -- did note possible mucosal lesion however suspected artifact (consider GI in f/u for c-scope as well, monitor MRCP as below) Obs med/surg 1L LR in ER, additional 1L bolus ordered Check CXR LR @ 150cc/hr to prevent overload NPO Hold her chlorthalidone, phentermine (hasn't gotten the phentermine due to insurance coverage recently) Check TSH/Lipid(Prior Lipid panel 2020- Chol 139, HDL 59, LDL 63, TRG 63) A1c w/ AM labs Antiemetics, pain control prn zofran, morphine on sliding scale prn. avoiding tylenol given AST/ALT elevation/pancreatitis Check MRCP/consult GI pending results Monitor labs on repeat (2) Elevated lipase: Plan: elevated on admit, suspected related to pancreatitis TB 1.7, AST/ALT elevation but normal ALP Trend LFT/lipase on repeat MRCP for further eval (3) Pancreatitis: Plan: MRCP for further eval (4) Cardiomyopathy: Plan: by report, ECHO April 2022 w/ LV systolic function normal. No regional wma. EF 50-55%, No significant valvular pathololgy (5) Fatty infiltration of liver: Plan: likely 2nd to obesity TB/AST/ALT elevated but ALP wnl, ?to alcohol (6) YOLETTE (obstructive sleep apnea): Plan: CPAP -- may use own, may order our unit if someone not able to bring also w/ morbid obesity, BMI 62 --> weight loss encouraged (7) Anemia: Plan: hx MARIANNA to be on supplementation hgb 11.3 on labs, MCV 78.8. Check iron panel for eval. No bleeding reported. Does take NSAIDs -- ibuprofen ~400mg daily monitor cbc (8) Hypokalemia: Plan: 3.2 -- LR/IV replacement check mag/replacement if needed Monitor labs on repeat History of Present Illness Chief Complaint: abdominal pain Primary Care Provider: Paul Nazario 37yo female with PMHx significant for GERD, fatty liver, YOLETTE, morbid obesity presented after waking up from her sleep around 2am with severe burning abdominal pain w/ radiation to mid back. Lipase 3619. Pain worse w/ deep inhalation. No excessive Tylenol use, occasional alcohol use. She reports 1 mixed aguilar this friday but rarely has alcohol. She does report taking about 400mg ibuprofen for knee pain. No tylenol use. Did report epigastric pain w/ radiation to her mid-back. She has IUD and doesn't get her period but knows she is anemia and forgets to take oral iron supplementation. She does take medication for reflux. Has had ECHO given prior enlarged heart but never had cath. Hx YOLETTE and wears CPAP -- will see if someone able to bring in for her but if not will order home unit. Discussed GI symptoms -- states she has not had any vomiting, but nausea w/ the pain. States her urine is typically pretty clear but it is concentrated and she hasn't had anything yet today. Currently pain free since given morphine. She was asking about need for admission as she has a 5 year old at home. Discussed if able to obtain further testing/supportive care and labs and could potentially discharge on modified diet if able to adhere to at home. No fever/chills, chest pain, headache, visual changes reported. Was given dose of pepcid IV, toradol 15mg IV x 1 and 1L NSS bolus, 4mg IV morphine x 1. Additional LR bolus 1L x 1 now ordered VSS 114/74, 74pbm, RR 18, 95% on RA Allergies Allergy/AdvReac Type Severity Reaction Status Date / Time bee venom protein (honey bee) Allergy Severe SWELLING Verified 10/17/22 13:41 milk Allergy Intermediate GI UPSET Verified 10/17/22 13:41 Home Medications Medication Instructions Recorded Confirmed Type epinephrine 0.3 mg/0.3 mL 0.3 mg IM Q10M PRN Allergic 09/02/19 10/17/22 History injection, auto-injector (EpiPen) Reaction levonorgestrel 21 mcg/24 hours (8 20 mcg intrauterine CONTINOUS 09/02/19 10/17/22 History yrs) 52 mg intrauterine device (Mirena) cholecalciferol (vitamin D3) 25 75 mcg PO DAILY 11/27/21 10/17/22 History mcg (1,000 unit) capsule multivitamin 1 tab PO DAILY 11/27/21 10/17/22 History esomeprazole magnesium 40 mg 40 mg PO DAILY 01/01/22 10/17/22 History capsule,delayed release (Nexium) chlorthalidone 25 mg tablet 25 mg PO DAILY 07/02/22 10/17/22 History phentermine 15 mg capsule 15 mg PO DAILY #30 caps 09/17/22 10/17/22 Rx Past Med/Surg History Medical History Cardiomyopathy GERD (gastroesophageal reflux disease) Iron deficiency YOLETTE (obstructive sleep apnea) Surgical History History of adenectomy History of dilation and curettage (~2015) x2 History of oral surgery Family History Family/Other Anemia Cardiac disorder Depression Diabetes Social History Smoking Status: Never smoker Hx Alcohol Use: Yes (social) Alcohol type: wine Hx Substance Use: No Preferred Language: Cameroonian Communication Ability: Effective 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 Beliefs That Will Affect Care: None marital status: Single Current Living Situation: Other Current Living Situation Comment: roommate current occupational status: employed 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 Other Information That Helps Us Care for You: No Feels Safe at Home: Yes Safety Concerns: Feels Safe At This Time Assistive Devices: CPAP Review of Systems Review of Systems: All systems reviewed & are unremarkable except as noted in HPI & below Physical Exam Physical Exam: General: WD morbidly obese female sitting up in bed, NAD HEENT: head atraumatic, normocephalic, thick neck, mm slightly dry, trachea midline Resp: decreased effort, diminished throughout but no w/c, on room air CV: RRR, no significant m/r/g, no pitting edema GI: +BS, obese, NONTENDER, no guarding/rigidity : no conklin MSK/Neuro: no focal deficit Psych: AOx3, pleasant and cooperative but anxious about need to stay inpatient Results & Data Results & Data ([facility]) Vital Signs (Past 12 Hours) Vital Signs Temp Pulse Pulse Resp BP BP Pulse Ox 11/11/22 09:34 74 18 114/74 95 11/11/22 08:19 70 11/11/22 08:22 67 18 95 11/11/22 08:22 67 18 135/88 95 11/11/22 07:34 36.1 C L 72 20 137/77 98 O2 Del Method 11/11/22 09:34 Room Air 11/11/22 08:19 11/11/22 08:22 Room Air 11/11/22 08:22 Room Air 11/11/22 07:34 Room Air Laboratory Results 11/11/22 11/11/22 11/11/22 Range/Units 07:54 07:54 07:54 WBC (4.8-10.8) K/ul RBC (4.20-5.40) M/uL Hgb (12.0-16.0) g/dl Hct (37.0-47.0) % MCV (80.0-100.0) fL MCH (25.0-34.0) pg MCHC (32.0-36.0) g/dL RDW Std Deviation (36.4-46.3) fL RDW Coeff of Hari (11.5-14.5) % Plt Count (130-400) K/uL MPV (9.4-12.4) fL Immature Gran % (Auto) % Neut % (Auto) % Lymph % (Auto) % [place] % (Auto) % Eos % (Auto) % Baso % (Auto) % Neut # (Auto) (1.40-6.50) K/uL Lymph # (Auto) (1.2-3.4) K/uL Glad[place] # (Auto) (0.11-0.59) K/uL Eos # (Auto) (0-0.50) K/uL Baso # (Auto) (0-0.2) K/uL Immature Gran # (Auto) (0.01-0.20) K/uL Sodium 138 (136-145) mmol/L Potassium 3.2 L (3.5-5.1) mmol/L Chloride 101 (98-107) mmol/L Carbon Dioxide 31 (21-32) mmol/L Anion Gap 6 (3-11) BUN 12 (6-23) mg/dl Creatinine 0.61 (0.6-1.2) mg/dl Est Cr Clr Drug Dosing 211.3 ml/min Est GFR ( Amer) 134.2 ml/min Est GFR (Non-Af Amer) 115.8 ml/min BUN/Creatinine Ratio 19.7 (10-20) Glucose 115 H (70-99(Fasting)) mg/dl Calcium 9.0 (8.5-10.1) mg/dl Total Bilirubin 1.7 H (0.2-1.0) mg/dl AST 104 H (13-39) U/L ALT 63 H (7-52) U/L Alkaline Phosphatase 98 (34-104) U/L Troponin I High Sens 9.6 (0-14) pg/ml Total Protein 7.9 (6.0-8.3) gm/dl Albumin 3.8 (3.4-5.0) gm/dl Globulin 4.1 H (2.5-4.0) gm/dl Albumin/Globulin Ratio 0.9 (0.9-2) Lipase 3619 H (11-82) U/L Urine Color Dark Yellow Urine Appearance Cloudy A (Clear) Urine pH 6.0 (4.5-7.5) Ur Specific [place] 1.019 (1.000-1.030) Urine Protein Negative (Negative) Urine Glucose (UA) Negative (Negative) Urine Ketones Negative (Negative) Urine Blood Negative (Negative) Urine Nitrite Negative (Negative) Urine Bilirubin 1+ H (Negative) Urine Urobilinogen Positive H (Negative) Ur Leukocyte Esterase 1+ H (Negative) Urine WBC (Auto) 1-5 (0-5) /hpf Urine RBC (Auto) 5-10 H (0-4) /hpf U Hyaline Cast (Auto) 0 (0-5) /lpf U Epithel Cells (Auto) >30 H (0-5) /lpf Urine Bacteria (Auto) 1+ H (Negative) Urine Test Negative (Negative) 11/11/22 Range/Units 07:54 WBC 6.41 (4.8-10.8) K/ul RBC 4.68 (4.20-5.40) M/uL Hgb 11.3 L (12.0-16.0) g/dl Hct 36.9 L (37.0-47.0) % MCV 78.8 L (80.0-100.0) fL MCH 24.1 L (25.0-34.0) pg MCHC 30.6 L (32.0-36.0) g/dL RDW Std Deviation 52.4 H (36.4-46.3) fL RDW Coeff of Hari 18.5 H (11.5-14.5) % Plt Count 235 (130-400) K/uL MPV 10.0 (9.4-12.4) fL Immature Gran % (Auto) 0.3 % Neut % (Auto) 65.3 % Lymph % (Auto) 25.7 % Gladwin % (Auto) 7.3 % Eos % (Auto) 1.1 % Baso % (Auto) 0.3 % Neut # (Auto) 4.18 (1.40-6.50) K/uL Lymph # (Auto) 1.65 (1.2-3.4) K/uL Gladwin # (Auto) 0.47 (0.11-0.59) K/uL Eos # (Auto) 0.07 (0-0.50) K/uL Baso # (Auto) 0.02 (0-0.2) K/uL Immature Gran # (Auto) 0.02 (0.01-0.20) K/uL Sodium (136-145) mmol/L Potassium (3.5-5.1) mmol/L Chloride (98-107) mmol/L Carbon Dioxide (21-32) mmol/L Anion Gap (3-11) BUN (6-23) mg/dl Creatinine (0.6-1.2) mg/dl Est Cr Clr Drug Dosing ml/min Est GFR ( Amer) ml/min Est GFR (Non-Af Amer) ml/min BUN/Creatinine Ratio (10-20) Glucose (70-99(Fasting)) mg/dl Calcium (8.5-10.1) mg/dl Total Bilirubin (0.2-1.0) mg/dl AST (13-39) U/L ALT (7-52) U/L Alkaline Phosphatase (34-104) U/L Troponin I High Sens (0-14) pg/ml Total Protein (6.0-8.3) gm/dl Albumin (3.4-5.0) gm/dl Globulin (2.5-4.0) gm/dl Albumin/Globulin Ratio (0.9-2) Lipase (11-82) U/L Urine Color Urine Appearance (Clear) Urine pH (4.5-7.5) Ur Specific [place] (1.000-1.030) Urine Protein (Negative) Urine Glucose (UA) (Negative) Urine Ketones (Negative) Urine Blood (Negative) Urine Nitrite (Negative) Urine Bilirubin (Negative) Urine Urobilinogen (Negative) Ur Leukocyte Esterase (Negative) Urine WBC (Auto) (0-5) /hpf Urine RBC (Auto) (0-4) /hpf U Hyaline Cast (Auto) (0-5) /lpf U Epithel Cells (Auto) (0-5) /lpf Urine Bacteria (Auto) (Negative) Urine Test (Negative) Diagnostic Findings Abdomen/Pelvis CT 11/11/22 08:00 CT OF THE ABDOMEN AND PELVIS WITH CONTRAST CLINICAL HISTORY: Epigastric abdominal pain. COMPARISON STUDY: CTA of the abdomen and pelvis April 01, 2022. TECHNIQUE: Following IV administration of 118 mL of Optiray, axial images of the abdomen and pelvis were obtained from the lung bases to the proximal femurs. Images were reviewed in the axial, sagittal, and coronal planes. IV contrast was administered without complication. Automated exposure control was utilized for the study. A dose lowering technique was utilized adhering to the principles of ALARA. CT DOSE: 1950.98 mGy.cm FINDINGS: Lung bases are unremarkable. No pneumatosis, free air or portal venous gas is present. There is hepatic steatosis. The spleen, adrenal glands, kidneys and pancreas are normal. No biliary or pancreatic ductal dilatation. No hydronephrosis. No peripancreatic or pericholecystic infiltration is present. The appendix is normal. There is apparent wall thickening with shouldering within the cecum shown best on axial image 255 of 436. This is probably artifactual. Intrauterine device is in place. There is no ascites. There is no lymphadenopathy. No fluid collection is present. Small fat-containing umbilical hernia is present. There are no acute fractures. No suspicious osseous lesions are present. Infrarenal abdominal aorta is ectatic, measuring 2.7 cm. This is unchanged. IMPRESSION: 1. No bowel obstruction. Normal appendix. 2. Apparent wall thickening with shouldering within the cecum. This is likely artifactual. Although less likely, a mucosal lesion cannot be excluded. GI con sultation for consideration for colonoscopy is recommended. 3. Hepatic steatosis. ACT 112: Positive. There are findings on this exam that require communication between the performing entity and the patient following Patient Test Result Information Act ([place] Act 112) guidelines. Electronically signed by: Paulo Long M.D. 11/11/2022 9:51 AM Supervising Physician Co-Signing Physician Notes I personally saw and examined the patient. I verified all beyer points and agree with Desiree Aguilar PA-C with the following exceptions and/or additions: 37 year old female presents to the ER with sudden onset upper abdominal pain, back pain, nausea started at 2am today. O/E A&Ox3, morbidly obese, HS RRR, no murmurs, Chest CTAB, Abdo right upper quadrant and epigastric tenderness without guarding or rebound A/P Suspected gallstone pancreatitis - with MRCP negative and improvement in pain I suspect she passed the gallstone causing the pancreatitis. Likely short lives hence lack of imaging changes of pancreas inflammation. NSS bolus 1L bolus given in ER, additional LR 1L bolus given. Will continue with 1,5ml/kg adjusted body weight which works out around 150ml/hr LR and cap this at 3L. If LFTs rising recommend consulting GI. Otherwise likely cholecystectomy to be consider by [facility] surgery tomorrow. Low suspicion of acute cholecystitis given elevated lipase is main abnormal lab, no WBC, improving pain, no fever - will defer antibiotics currently but certainly if situation appears more infective ie. fever, recommend ceftriaxone + metronidazole. Alternative causes with calcium, triglycerides, alcohol unremarkable PG Care Time/CCT Total # of Minutes Spent Total Time Spent with Patient: Total time spent is greater than 50% in coordination of care (as documented) at patient's floor/unit and/or counseling patient: Coding Level of Care Code 37678 INT INP/OBS CARE 375MIN Diagnoses Abdominal pain R10.9 Elevated lipase R74.8 Pancreatitis K85.90 Cardiomyopathy I42.9 Fatty infiltration of liver K76.0 YOLETTE (obstructive sleep apnea) G47.33 Anemia D64.9 Hypokalemia E87.6
[2022-11-11] MEDS ORDERED: POTASSIUM CHLORIDE 10 MEQ / 100ML WTR IV ONE (10:43)
[2022-11-11] MEDS: POTASSIUM CHLORIDE / WTR 10 MEQ/100 ML PLCT IV SCH ×2 (10:52→13:46)
--- NOTE | 2022-11-11 11:09 | XRay Report ---
SINGLE VIEW CHEST CLINICAL HISTORY: Atypical chest pain FINDINGS: An AP, portable, upright chest radiograph is compared to chest x-ray and chest CT dated 04/01. The heart is enlarged. There is pulmonary vascular congestion. Bilateral airspace opacities li hung represent interstitial edema. No large pleural effusion or pneumothorax is seen. The skeletal st ructures are osteopenic. The bony thorax is grossly intact. IMPRESSION: 1. Cardiomegaly with evidence of congestive failure. 2. Bilateral airspace opacities likely represent pulmonary edema. Correlate clinically for evidence o f a superimposed infectious/inflammatory pneumonitis. Radiographic follow-up to resolution is recomme nded. ACT 112: Negative or not required by law. Electronically signed by: Noble Lynn M.D. 11/11/2022 11:07 AM
[2022-11-11 11:12] LABS: Chol HDL Ratio 2.4 (0-5); Magnesium 1.9 mg/dl (1.7-2.4)
[2022-11-11 11:13] LABS: Ferritin 260.5 ng/ml (8-388)
--- NOTE | 2022-11-11 13:18 | Magnetic Resonance Report ---
MRCP CLINICAL HISTORY: elevated LFT, pancreatitis TECHNIQUE: Utilizing a 1.5 Yulisa magnet and dedicated coil, multiplanar, multiecho imaging of the [facility] abdomen was performed utilizing heavily T2 weighted pulsing sequences without IV contrast. COMPARISON STUDY: CT of the abdomen and pelvis November 11, 2022 and CTA of the abdomen and pelvis [facility] 2021. FINDINGS: There is no intra or extra hepatic biliary ductal dilatation. Common bile duct measures alvarado roximately 3 mm in caliber. No common bile duct calculi identified although sensitivity is significan tly diminished given motion artifact on this examination. No peripancreatic fluid collections are pre sent. There is no peripancreatic fluid. Layering T2 hypointense which are within the gallbladder is n oted. This favors small gallstones. Sludge could appear similar. Mild gallbladder wall thickening. Th e gallbladder is not significantly distended. Hepatic steatosis is better depicted on CT. No hepatic lesions are identified on unenhanced exam. Spleen, adrenal glands and kidneys are normal. There is no hydronephrosis. Caliber of visualized small and large bowel are normal. IMPRESSION: 1. No biliary ductal dilatation. No common bile duct calculi identified although exam significantly c ompromised by motion artifact. 2. Layering T2 hypointense material within the gallbladder which may reflect small stones or sludge. Mild gallbladder wall thickening. No convincing evidence for acute cholecystitis although a hepatobil iary scan could be obtained as indicated. 3. Hepatic steatosis, better depicted on prior CT. 4. No peripancreatic fluid collections. No peripancreatic fluid. ACT 112: Negative or not required by law. Electronically signed by: Paulo Long M.D. 11/11/2022 1:16 PM
[2022-11-11] MEDS ORDERED: ONDANSETRON INJ 2 MG/ML 2 ML VIAL IV PRN (14:12)
[2022-11-11] MEDS ORDERED: MoRPHine SULFATE 2 MG/ML CARP IV PRN (14:12)
[2022-11-11] MEDS ORDERED: MoRPHine SULFATE 4 MG/ML 1 ML CARP\\VIAL IV PRN (14:12)
[2022-11-11] MEDS: LACTATED RINGER'S 1,000 ML IV SCH ×2 (14:26→21:33)
--- NOTE | 2022-11-11 15:03 | Surgery Consultation ---
Date of Consultation November 11, 2022 Assessment & Plan (1) Elevated lipase: This is a 37yF with a PMH of GERD, YOLETTE, cardiomyopathy, morbid obesity with BMI >40, who presents to the [facility] ED on 11/11/22 with complaints of abdominal pain that radiated to her back starting at 2am this morning. In the ER she was noted to have elevated lipase >[address] a/p was obtained. CT did not report evidence of pancreatitis or gallbladder pathology. Did show some wall thickening of the cecum and cannot rule out mucosal lesion. Follow up with an MRCP showed no biliary ductal dilation or evidence of CBD stones- however exam was significantly compromised by motion. Also showed concern for some small stones vs sludge with mild gallbladder wall thickening without evidence of acute cholecystitis. Other labs revealed WBC 6.4, Tb: 1.4, AST: 104, ALT: 63, Alkp: 98. Vital signs are stable. On examination patient's abdomen is obese, non distended, soft, with discomfort elicited in the RUQ/epigastric regions. It is possible that patient is dealing with gall stone pancreatitis. She does not report a concerning recent alcohol history. Interesting that CT and MRCP do not remark on any abnormalities regarding the pancreas nor evidence of biliary or pancreatic ductal dilation. May have some small stones/sludge in the gallbladder per MRCP, but exam limited by motion. Does have hepatic steatosis. Recommend obtaining a RUQ US for further evaluation of gallstones. We will continue to follow and make recommendations if surgical intervention is warranted for lap keeley pending ongoing workup. No plans for urgent intervention at this point. Trend LFTs/Lipase. Keep NPO with IVF. (2) Abdominal pain: Supervising Physician Co-Signing Physician Notes I personally saw and evaluated the patient with Laurita Oliveira PA-C and agree with the assessment and plan. 37-year-old female with likely gallstone pancreatitis CT images and MRI images personally reviewed by myself, no signs of cholecystitis however there are concerns of pancreatitis and biliary sludge/gallstones We will order a right upper quadrant ultrasound to confirm cholelithiasis and rule out any biliary ductal dilation/choledocholithiasis History of Present Illness Attending Physician: Car Alvarez MD History of Present Illness This is a 37yF with a PMH of GERD, YOLETTE, cardiomyopathy, morbid obesity with BMI >40, who presents to the [facility] ED on 11/11/22 with complaints of abdominal pain that radiated to her back. Patient states the pain woke her up in her sleep around 2AM today. Pain mostly in right upper abdomen and rated it an 8/10 at it's worst. Never had pain to this severity before. This was associated with nausea. She denies fevers/chills, CP/SOB, bouts of emesis. In the ER she was noted to have elevated lipase >[address] a/p was obtained. CT did not report evidence of pancreatitis or gallbladder pathology. Did show some wall thickening of the cecum and cannot rule out mucosal lesion. Follow up with an MRCP showed no biliary ductal dilation or evidence of CBD stones- however exam was significantly compromised by motion. Also showed concern for some small stones vs sludge with mild gallbladder wall thickening without evidence of acute cholecystitis. Patient states she only drinks occasionally, about ~1x/month. Her last drink was over the weekend which consisted of a aguilar. She follows with a PCP and reports no recent issues with cholesterol or triglycerides per pt. No history of prior abdominal surgery. Last ate some tortilla chips yesterday evening. No history of issues with eating fatty/spicy foods. Allergies Allergy/AdvReac Type Severity Reaction Status Date / Time bee venom protein (honey bee) Allergy Severe SWELLING Verified 10/17/22 13:41 milk Allergy Intermediate GI UPSET Verified 10/17/22 13:41 Home Medications Medication Instructions Recorded Confirmed Type epinephrine 0.3 mg/0.3 mL 0.3 mg IM Q10M PRN Allergic 09/02/19 10/17/22 History injection, auto-injector (EpiPen) Reaction levonorgestrel 21 mcg/24 hours (8 20 mcg intrauterine CONTINOUS 09/02/19 10/17/22 History yrs) 52 mg intrauterine device (Mirena) cholecalciferol (vitamin D3) 25 75 mcg PO DAILY 11/27/21 10/17/22 History mcg (1,000 unit) capsule multivitamin 1 tab PO DAILY 11/27/21 10/17/22 History esomeprazole magnesium 40 mg 40 mg PO DAILY 01/01/22 10/17/22 History capsule,delayed release (Nexium) chlorthalidone 25 mg tablet 25 mg PO DAILY 07/02/22 10/17/22 History phentermine 15 mg capsule 15 mg PO DAILY #30 caps 09/17/22 10/17/22 Rx Patient History Medical History Cardiomyopathy GERD (gastroesophageal reflux disease) Iron deficiency YOLETTE (obstructive sleep apnea) Surgical History History of adenectomy History of dilation and curettage (~2016) x2 History of oral surgery Family History Family/Other Anemia Cardiac disorder Depression Diabetes Social History Smoking Status: Never smoker Hx Alcohol Use: Yes (social) Alcohol type: wine Hx Substance Use: No Preferred Language: Omani Communication Ability: Effective Ride Attendant Required: No Beliefs That Will Affect Care: None marital status: Single Current Living Situation: Other Current Living Situation Comment: roommate current occupational status: employed 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 Other Information That Helps Us Care for You: No Feels Safe at Home: Yes Safety Concerns: Feels Safe At This Time Assistive Devices: CPAP Review of Systems Constitutional: no fever and no chills Respiratory: no dyspnea Cardiovascular: no chest pain Gastrointestinal: + abdominal pain (ruq/epigastric), + bloating and + nausea; no vomiting and no change in bowel habits Musculoskeletal: + back pain (across lower back) Physical Exam Physical Exam: awake/alert, no distress Constitutional: well developed and + morbidly obese Respiratory: normal respiratory effort Cardiovascular: Rate/Rhythm: regular rate Gastrointestinal (Abdomen): Inspection/Auscultation: abdomen not distended Percussion/Palpation: + abdomen tender (discomfort to palpation in epigastric/ruq regions) and abdomen soft obese abdomen Results & Data ([facility]) Vital Signs (Past 12 Hours) Vital Signs Temp Pulse Pulse Resp BP BP Pulse Ox 11/11/22 14:14 11/11/22 14:14 36.7 C 70 18 120/69 99 11/11/22 11:40 67 22 94 11/11/22 11:31 72 17 100 11/11/22 11:31 114/70 11/11/22 11:30 66 18 98 11/11/22 11:20 74 19 99 11/11/22 11:10 70 20 96 11/11/22 11:00 71 21 98 11/11/22 10:54 67 17 100 11/11/22 13:14 84 18 111/69 98 11/11/22 10:31 67 20 107/74 94 11/11/22 09:34 74 18 114/74 95 11/11/22 08:19 70 11/11/22 08:22 67 18 95 11/11/22 08:22 67 18 135/88 95 11/11/22 07:34 36.1 C L 72 20 137/77 98 O2 Del Method 11/11/22 14:14 Room Air 11/11/22 14:14 Room Air 11/11/22 11:40 11/11/22 11:31 11/11/22 11:31 11/11/22 11:30 11/11/22 11:20 11/11/22 11:10 11/11/22 11:00 11/11/22 10:54 11/11/22 13:14 11/11/22 10:31 Room Air 11/11/22 09:34 Room Air 11/11/22 08:19 11/11/22 08:22 Room Air 11/11/22 08:22 Room Air 11/11/22 07:34 Room Air Diagnostic Findings MRCP CLINICAL HISTORY: elevated LFT, pancreatitis TECHNIQUE: Utilizing a 1.5 Yulisa magnet and dedicated coil, multiplanar, multiecho imaging of the upper abdomen was performed utilizing heavily T2 weighted pulsing sequences without IV contrast. COMPARISON STUDY: CT of the abdomen and pelvis November 11, 2022 and CTA of the abdomen and pelvis April 01, 2022. FINDINGS: There is no intra or extra hepatic biliary ductal dilatation. Common bile duct measures approximately 3 mm in caliber. No common bile duct calculi identified although sensitivity is significantly diminished given motion artifact on this examination. No peripancreatic fluid collections are present. There is no peripancreatic fluid. Layering T2 hypointense which are within the gallbladder is noted. This favors small gallstones. Sludge could appear similar. Mild gallbladder wall thickening. The gallbladder is not significantly distended. Hepatic steatosis is better depicted on CT. No hepatic lesions are identified on unenhanced exam. Spleen, adrenal glands and kidneys are normal. There is no hydronephrosis. Caliber of visualized small and large bowel are normal. IMPRESSION: 1. No biliary ductal dilatation. No common bile duct calculi identified although exam significantly compromised by motion artifact. 2. Layering T2 hypointense material within the gallbladder which may reflect small stones or sludge. Mild gallbladder wall thickening. No convincing evidence for acute cholecystitis although a hepatobiliary scan could be obtained as indicated. 3. Hepatic steatosis, better depicted on prior CT. 4. No peripancreatic fluid collections. No peripancreatic fluid. ACT 112: Negative or not required by law. Electronically signed by: Paulo Long M.D. 11/11/2022 1:[address] OF THE ABDOMEN AND PELVIS WITH CONTRAST CLINICAL HISTORY: Epigastric abdominal pain. COMPARISON STUDY: CTA of the abdomen and pelvis April 01, 2022. TECHNIQUE: Following IV administration of 118 mL of Optiray, axial images of the abdomen and pelvis were obtained from the lung bases to the proximal femurs. Images were reviewed in the axial, sagittal, and coronal planes. IV contrast was administered without complication. Automated exposure control was utilized for the study. A dose lowering technique was utilized adhering to the principles of ALARA. CT DOSE: 1950.98 mGy.cm FINDINGS: Lung bases are unremarkable. No pneumatosis, free air or portal venous gas is present. There is hepatic steatosis. The spleen, adrenal glands, kidneys and pancreas are normal. No biliary or pancreatic ductal dilatation. No hydronephrosis. No peripancreatic or pericholecystic infiltration is present. The appendix is normal. There is apparent wall thickening with shouldering within the cecum shown best on axial image 255 of 436. This is probably artifactual. Intrauterine device is in place. There is no ascites. There is no lymphadenopathy. No fluid collection is present. Small fat-containing umbilical hernia is present. There are no acute fractures. No suspicious osseous lesions are present. Infrarenal abdominal aorta is ectatic, measuring 2.7 cm. This is unchanged. IMPRESSION: 1. No bowel obstruction. Normal appendix. 2. Apparent wall thickening with shouldering within the cecum. This is likely artifactual. Although less likely, a mucosal lesion cannot be excluded. GI consultation for consideration for colonoscopy is recommended. 3. Hepatic steatosis. ACT 112: Positive. There are findings on this exam that require communication between the performing entity and the patient following Patient Test Result Information Act ([place] Act 112) guidelines. Electronically signed by: Paulo Long M.D. 11/11/2022 9:51 AM PG Care Time/CCT Total # of Minutes Spent Total Time Spent with Patient: Total time spent is greater than 50% in coordination of care (as documented) at patient's floor/unit and/or counseling patient: Coding Level of Care Code 75231 IN/OBS CONSULT LVL 3,45M Diagnoses Elevated lipase R74.8 Abdominal pain R10.9
--- NOTE | 2022-11-11 16:29 | Ultrasound Report ---
ULTRASOUND RIGHT UPPER QUADRANT ABDOMEN CLINICAL HISTORY: Elevated hepatic transaminases. Pancreatitis. Cholelithiasis. COMPARISON STUDY: Abdominal CT and MRCP dated 11/11/2022. TECHNIQUE: Real-time, grayscale, and color flow sonography of the right upper quadrant of the abdomen was performed. Images are reviewed in the transverse and longitudinal planes. FINDINGS: Liver: The liver is enlarged and demonstrates heterogeneous increased echotexture indicating steatosi s. Note that this degrades acoustic penetration of the liver. There is no intrahepatic biliary ductal dilatation. The main portal vein is patent. Gallbladder: There are layering shadowing calcified gallstones. The gallbladder wall appears mildly t hickened and edematous measuring up to 4 mm. There is no pericholecystic fluid. A sonographic Manley' s sign is reportedly absent. The common bile duct measures up to 0.4 cm in diameter. Pancreas: Visualized portions of the pancreatic head and body are normal in appearance. The splenic v ein is patent. Right kidney: Survey images of the right kidney demonstrate normal size and echotexture. There is no hydronephrosis. Ascites: None. IMPRESSION: 1. Cholelithiasis within a nondistended gallbladder. The a lateral wall appears mildly thickened and edematous and a sonographic Manley's sign is reportedly absent. Findings are equivocal for acute chol ecystitis which is not entirely excluded. If there is strong clinical concern for cholecystitis a nuc lear hepatobiliary scan should be obtained. 2. There is no intra or extrahepatic biliary ductal dilatation. 3. The liver is enlarged and steatotic. ACT 112: Negative or not required by law. Electronically signed by: Noble Lynn M.D. 11/11/2022 4:28 PM
--- NOTE | 2022-11-11 17:28 | Communication Note ---
Date of Service: November 11, 2022 MRCP w/ concerns for acute keeley/gallstone pancreatitis Discussed w/ general surgery, -- rec'd RUQ US RUQ US w/ Cholelithiasis within a nondistended gallbladder. The a lateral wall appears mildly thickened and edematous and a sonographic Manley's sign is reportedly absent. Findings are equivocal for acute cholecystitis which is not entirely excluded. If there is strong clinical concern for cholecystitis a nuclear hepatobiliary scan should be obtained. Discussed w/ and plan to repeat LFTs/lipase in AM, keep NPO and if labs improved in AM will plan for surgery No DVT proph for possible surgery in AM
[2022-11-12] MEDS: LACTATED RINGER'S 1,000 ML IV SCH (03:56)
--- NOTE | 2022-11-12 06:03 | Electrocardiogram Report ---
Test Reason : Blood Pressure : / mmHG Vent. Rate : 063 BPM Atrial Rate : 063 BPM P-R Int : 186 ms QRS Dur : 102 ms QT Int : 456 ms P-R-T Axes : 057 027 029 degrees QTc Int : 466 ms Normal sinus rhythm with sinus arrhythmia Normal ECG When compared with ECG of 01-APR-2022 22:44, Nonspecific T wave abnormality, improved in Anterior leads Confirmed by Ethan Torres ([id number]) on 11/12/2022 6:03:08 AM Referred By: Confirmed By:Ethan Torres
[2022-11-12 08:18] LABS: Albumin Level 3.3 gm/dl (3.4-5.0); BUN Creatinine Ratio 18.2 (10-20); Bilirubin Direct 0.2 mg/dl (0-0.2); Bilirubin,Total 0.7 mg/dl (0.2-1.0); Calcium 8.6 mg/dl (8.5-10.1); Creatinine Clr Calc Pharmacy 234.4 ml/min; Est GFR (African American) 138.9 ml/min; Est GFR (Non-African American) 119.8 ml/min; Potassium 3.8 mmol/L (3.5-5.1); Total Protein 6.8 gm/dl (6.0-8.3)
[2022-11-12 08:22] LABS: Hematocrit (blood only) 34.4 % (37.0-47.0); Hemoglobin 10.5 g/dl (12.0-16.0); Mean Corpuscular Hemoglobin 24.1 pg (25.0-34.0); Mean Corpuscular Hgb Conc 30.5 g/dL (32.0-36.0); Mean Corpuscular Volume 79.1 fL (80.0-100.0); Mean Platelet Volume 10.1 fL (9.4-12.4); Platelet Count 181 K/uL (130-400); RDW Coefficient of Variation 18.5 % (11.5-14.5); RDW Standard Deviation 52.4 fL (36.4-46.3); Red Blood Count 4.35 M/uL (4.20-5.40); White Blood Count 5.43 K/ul (4.8-10.8)
[2022-11-12 08:23] LABS: Estimated Average Glucose 126 mg/dl
[2022-11-12 08:31] LABS: INR 1.1 (0.9-1.1); Prothrombin Time 11.6 Seconds (9.0-12.0)
--- NOTE | 2022-11-12 09:57 | Surgery Progress Note ---
Date of Service November 12, 2022 Assessment & Plan (1) Morbid obesity: Plan: Ultrasound images and results personally viewed by myself, confirmation of cholelithiasis without significant signs of cholecystitis Clinically she is improved without any tenderness on exam today I did discuss with her that the most likely cause of her pancreatitis is her biliary sludge/gallstones and that we would proceed with cholecystectomy tomorrow She stated that she only has childcare for today and would like to delay surgery at all costs at this point I did tell her the risks of recurrent pancreatitis and or gallbladder attacks in the meantime and she is okay with this risk All of her labs are improved today, will advance her diet as tolerated and she can see me as an outpatient to discuss cholecystectomy (2) Pancreatitis: Admission and Anticipated Discharge Date Admission Date: November 11, 2022 Subjective Patient seen and examined. States her abdominal pain is resolved. Afebrile. Denies any nausea or vomiting. Review of Systems Constitutional: no fever and no chills Physical Exam Constitutional: WD/WN, vitals as above Gastrointestinal (Abdomen): Inspection/Auscultation: abdomen normal to inspection; abdomen not distended Percussion/Palpation: abdomen soft; abdomen nontender, no guarding and abdomen not rigid Results & Data ([facility]) Vital Signs (Past 12 Hours) Vital Signs Temp Pulse Resp BP BP Pulse Ox O2 Del Method 11/12/22 07:49 110/71 11/12/22 07:36 36.8 C 77 20 89/51 L 95 CPAP Diagnostic Findings ULTRASOUND RIGHT UPPER QUADRANT ABDOMEN CLINICAL HISTORY: Elevated hepatic transaminases. Pancreatitis. Cholelithiasis. COMPARISON STUDY: Abdominal CT and MRCP dated 11/11/2022. TECHNIQUE: Real-time, grayscale, and color flow sonography of the right upper quadrant of the abdomen was performed. Images are reviewed in the transverse and longitudinal planes. FINDINGS: Liver: The liver is enlarged and demonstrates heterogeneous increased echo texture indicating steatosis. Note that this degrades acoustic penetration of the liver. There is no intrahepatic biliary ductal dilatation. The main portal vein is patent. Gallbladder: There are layering shadowing calcified gallstones. The gallbladder wall appears mildly thickened and edematous measuring up to 4 mm. There is no pericholecystic fluid. A sonographic Manley's sign is reportedly absent. The common bile duct measures up to 0.4 cm in diameter. Pancreas: Visualized portions of the pancreatic head and body are normal in appearance. The splenic vein is patent. Right kidney: Survey images of the right kidney demonstrate normal size and echotexture. There is no hydronephrosis. Ascites: None. IMPRESSION: 1. Cholelithiasis within a nondistended gallbladder. The a lateral wall appears mildly thickened and edematous and a sonographic Manley's sign is reportedly absent. Findings are equivocal for acute cholecystitis which is not entirely excluded. If there is strong clinical concern for cholecystitis a nuclear hepatobiliary scan should be obtained. 2. There is no intra or extrahepatic biliary ductal dilatation. 3. The liver is enlarged and steatotic. PG Care Time/CCT Total # of Minutes Spent Total Time Spent with Patient: Total time spent is greater than 50% in coordination of care (as documented) at patient's floor/unit and/or counseling patient: Coding Level of Care Code 61837 SUB INP/OBS CARE 09/25MIN Diagnoses Morbid obesity E66.01 Pancreatitis K85.90
[2022-11-12] MEDS ORDERED: PANTOprazole 40 MG in SYRINGE 0 ML IV SCH (11:00)
--- NOTE | 2022-11-12 12:52 | Discharge Summary ---
Date of Service November 12, 2022 Admission HPI Per Admitting Provider 37yo female with PMHx significant for GERD, fatty liver, YOLETTE, morbid obesity presented after waking up from her sleep around 2am with severe burning abdominal pain w/ radiation to mid back. Lipase 3619. Pain worse w/ deep inhalation. No excessive Tylenol use, occasional alcohol use. She reports 1 mixed aguilar this friday but rarely has alcohol. She does report taking about 400mg ibuprofen for knee pain. No tylenol use. Did report epigastric pain w/ radiation to her mid-back. She has IUD and doesn't get her period but knows she is anemia and forgets to take oral iron supplementation. She does take medication for reflux. Has had ECHO given prior enlarged heart but never had cath. Hx YOLETTE and wears CPAP -- will see if someone able to bring in for her but if not will order home unit. Discussed GI symptoms -- states she has not had any vomiting, but nausea w/ the pain. States her urine is typically pretty clear but it is concentrated and she hasn't had anything yet today. Currently pain free since given morphine. She was asking about need for admission as she has a 5 year old at home. Discussed if able to obtain further testing/supportive care and labs and could potentially discharge on modified diet if able to adhere to at home. No fever/chills, chest pain, headache, visual changes reported. Was given dose of pepcid IV, toradol 15mg IV x 1 and 1L NSS bolus, 4mg IV morphine x 1. Additional LR bolus 1L x 1 now ordered VSS 114/74, 74pbm, RR 18, 95% on RA Principal Diagnosis cholelithiasis Discharge Exam The patient is awake, alert and oriented 3, morbidly obese HEENT--PERRL, EOMI, mucous membranes and oropharynx mildly dry Neck--supple. No JVD. No bruits. Thyroid normal, trachea midline, no adenopathy. Heart--normal S1 and S2. No murmurs, rubs or gallops. Lungs--clear bilaterally, no respiratory distress, no accessory muscle use. Abdomen--normal bowel sounds and soft. Mild epigastric and left sided abdominal pain Extremities--no cyanosis or clubbing. No edema. Dermatologic--normal skin turgor, normal color, no abnormal lymph nodes, no rash. Neurologic--cranial nerves II through XII grossly intact. Rheumatologic--normal range of motion. Psychiatric--normal affect. Discharge Data Allergies Allergy/AdvReac Type Severity Reaction Status Date / Time bee venom protein (honey bee) Allergy Severe SWELLING Verified 10/17/22 13:41 milk Allergy Intermediate GI UPSET Verified 10/17/22 13:41 Consultations 11/11/22 10:52 ED Decision to Admit Stat 11/11/22 14:52 Consult General Surgery Routine Ordered Studies 11/11/22 08:00 CT abd pelvis IV con only Stat 11/11/22 10:58 MRI MRCP [MR MRCP] Urgent 11/11/22 14:57 US gallbladder Urgent Hospital Course (1) Abdominal pain: presented with epigastric pain/radiation to mid-back. Is on chlorthalidone. Denies hx sickle cell/fam hx of such Lipase 3618 on admission concerning for pancreatitis. ?gallstone pancreatitis, ?passed stone -- not having any further pain at time of eval Patient w/o issues with bowels/blood in stool reported. Does have hx iron def anemia but forgets to take replacement CT abdomen and MRCP did not show any evience of stones ,however US gall bladder suggested cholelithiasis, withoutout cholecystitis She was initially scheduled for elective surgery, however patient said she did not have any child caregiver private home beyond today for her 5 year old son Since her pain had resolved, she agreed for an outpatient follow up with general surgery (2) Elevated lipase: elevated on admit, suspected related to pancreatitis TB 1.7, AST/ALT elevation but normal ALP Trend LFT/lipase on repeat MRCP for further eval (3) Pancreatitis: MRCP for further eval (4) Cardiomyopathy: by report, ECHO April 2022 w/ LV systolic function normal. No regional wma. EF 50-55%, No significant valvular pathololgy (5) Fatty infiltration of liver: likely 2nd to obesity TB/AST/ALT elevated but ALP wnl, ?to alcohol (6) YOLETTE (obstructive sleep apnea): CPAP -- may use own, may order our unit if someone not able to bring also w/ morbid obesity, BMI 62 --> weight loss encouraged (7) Anemia: hx MARIANNA to be on supplementation hgb 11.3 on labs, MCV 78.8. Check iron panel for eval. No bleeding reported. Does take NSAIDs -- ibuprofen ~400mg daily monitor cbc (8) Hypokalemia: 3.2 -- LR/IV replacement check mag/replacement if needed Monitor labs on repeat Plan d/c home. outpatient follow up with surgery for elective cholecystectomy Total Time Total Time Spent Total Time Spent (In Minutes): 35 Discharge Plan Discharge Items Patient Disposition: Home - Self-Care Reason For Visit: ABD PAIN, PANCREATITIS Discharge Diagnosis: cholelithiasis Condition on Discharge: Good Activity: Resume your previous activity Non-emergency contact: Primary Care Provider and Surgeon Call non-emergency contact if: you have any medication questions and your symptoms worsen Follow-up/Referrals: Jose Stewart DO [Physician] - 11/20/22 10:30 am (Follow up in the office within 1 week for surgical scheduling to have your gallbladder removed) Paul Nazario [Primary Care Provider] - 11/18/22 11:30 am Diet: Regular Addtl Attending Provider Instructions: please make appointment to follow up with general surgery as soon as possible Pending Studies at Discharge: No Stand-Alone Forms: My [employer], Smoking Cessation Medications and DC Order Prescriptions: Continued phentermine 15 mg capsule 15 mg PO DAILY Qty: 30 0RF multivitamin Tablet 1 tab PO DAILY cholecalciferol (vitamin D3) 25 mcg (1,000 unit) capsule 75 mcg PO DAILY chlorthalidone 25 mg tablet 25 mg PO DAILY epinephrine [EpiPen] 0.3 mg/0.3 mL auto-injector 0.3 mg IM Q10M PRN (Reason: Allergic Reaction) Mirena 20 mcg/24 hours (5 yrs) 52 mg intrauterine device 20 mcg intrauterine CONTINOUS esomeprazole magnesium [Nexium] 40 mg capsule,delayed release(DR/EC) 40 mg PO DAILY Discharge Orders: Discharge Order (Routine); Ordered 11/12/22 Ordered By: Kristy James/Other Patient Handouts: A1C, 5 Steps for Eating Healthier Admission Data Admit Date/Time: 11/11/22 11:14 Attending Provider: Kristy Smith Admit Provider: Car Alvarez Primary Care Provider: Paul Nazario Other Providers: Desiree Aguilar ; Jose Stewart Other Interventions: Discharge Summary Assessment (RN) Last Done: 11/12/22 11:02 Coding Level of Care Code 33180 INP/OBS DISCH >30 MIN Diagnoses Abdominal pain R10.9 Elevated lipase R74.8 Pancreatitis K85.90 Cardiomyopathy I42.9 Fatty infiltration of liver K76.0 YOLETTE (obstructive sleep apnea) G47.33 Anemia D64.9 Hypokalemia E87.6 Time Spent (min) 35
== END 2022-11-12 12:09 | disposition home or self-care (01) ==
LOC: ED 07:32 → 3N 07:32 → SUATTDRO 11:14 → 3N 14:16